=== PATIENT | male | born 1955 | race Caucasian/White ===

== ENCOUNTER 2017-03-20 07:29 | Emergency (ER) | payer BC ==
[~2017-03-20] VITALS: Ht 167.6 cm; Wt 75.1 kg
[~2017-03-20 07:29] MED LIST: MOBIC15 MG PO
[2017-03-20 08:07] VITALS: BP 120/70
== END 2017-03-20 08:15 | disposition home or self-care (01) ==
LOC: EME 07:29
DX: J06.9 Acute upper respiratory infection, unspecified (principal); E78.5 Hyperlipidemia, unspecified
CPT/HCPCS: 99281; 99283